=== PATIENT | female | born 1955 | race Caucasian/White ===

== ENCOUNTER → 2017-08-19 | Outpatient (CLI) | payer BC | LOC: CIMAGING 07:11 | PROVIDERS: ATTEND Family Medicine | DX: Z12.31 Encounter for screening mammogram for malignant neoplasm of breast (principal) | CPT/HCPCS: G0202 ==

== ENCOUNTER → 2018-08-25 | Outpatient (CLI) | payer BC | LOC: CIMAGING 09:25 | PROVIDERS: ATTEND Family Medicine | DX: Z12.31 Encounter for screening mammogram for malignant neoplasm of breast (principal) ==

== ENCOUNTER 2019-02-20 12:51 | Emergency (ER) | payer BC ==
--- NOTE | 2019-02-20 13:41 | EDPHY ---
H & P Stated Complaint: Foggy mind, dry mouth x 2 days Time Seen by Provider: 02/20/19 13:06 HPI/ROS: CHIEF COMPLAINT: Not feeling right History by patient HISTORY OF PRESENT ILLNESS: 63-year-old woman with history of hypertension and low thyroid presents complaining of 2-3 days of episodes where she is "feeling fuzzy in the head" along with a dry mouth and feeling like her bilateral arms are not strong like they ought to be. She denies vertigo, near-syncope or syncope. She denies chest pain or shortness of breath. She thinks this might be related to the addition of hydrochlorothiazide to her blood pressure medication regime. She began taking this 6-8 weeks ago and initially had some symptoms where she felt a little "woozy" but these resolved but then the past few days she has been having this "fuzzy head" and very dry mouth. She has been drinking lots of water to combat this. 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 She had yesterday off and was feeling slightly better yesterday but worse again today while at work. She denies taking any additional over-the- counter medications or herbal supplements other than vitamin D and vitamin C. She quit smoking many years ago. She wears contact lenses and does use wetting drops for her eyes which are sometimes dry but are not clearly worse than usual with the dry mouth. REVIEW OF SYSTEMS: As in HPI, and all other systems reviewed and are negative Source: Patient - Personal History Current Tetanus Diphtheria and Acellular Pertussis (TDAP): Yes Tetanus Vaccine Date: within 10 years - Medical/Surgical History Hx Asthma: No Hx Chronic Respiratory Disease: No Hx Diabetes: No Hx Cardiac Disease: No Hx Renal Disease: No Hx Cirrhosis: No Hx Alcoholism: No Hx HIV/AIDS: No Hx Splenectomy or Spleen Trauma: No Other PMH: HTN, hypothyroidism - Social History Smoking Status: Former smoker - Physical Exam Exam: General Appearance: Alert, comfortable, nontoxic-appearing Head: normocephalic, atraumatic Eyes: Pupils equal and round, reactive to light, no pallor or injection. Mouth: Mucous membranes moist. Oropharynx clear Neck: No bony tenderness, full range of motion Respiratory: Normal, effort, lungs are clear to auscultation. No wheezes, rales or rhonchi. Cardiovascular: Regular rate and rhythm. S1, S2, no murmurs, gallops or rubs appreciated Gastrointestinal: Abdomen is soft and nontender, no masses, bowel sounds normal. Back: No CVA tenderness, no bony tenderness Neurological: Awake, alert and oriented x 3, cranial nerves 2-12 intact, no pronator drift, normal gait, stands on heels and toes, sensation intact her Skin: Warm and dry, no rashes. Musculoskeletal: No deformities or tenderness. Extremities: full range of motion, no edema, DP2+ bilat Psychiatric: Patient has normal affect, there is no agitation. Constitutional: Initial Vital Signs Temperature (C) 36.4 C 02/20/19 13:00 Heart Rate 78 02/20/19 13:00 Respiratory Rate 16 02/20/19 13:00 Blood Pressure 150/87 H 02/20/19 13:00 O2 Sat (%) 94 02/20/19 13:00 O2 Delivery Mode Room Air Allergies/Adverse Reactions: Penicillins Allergy (Verified 02/20/19 13:02) PT unsure of reaction, reaction as child Home Medications: Medication Instructions Recorded Levothyroxine 02/20/19 Lisinopril/Hydrochlorothiazide 02/20/19 Medical Decision Making ED Course/Re-evaluation: 63-year-old woman presents with dry mouth and fuzzy head after recent change her blood pressure medications. Vital signs were stable although her blood pressure was slightly high certainly not range which I would think it would cause any symptoms. She is unremarkable exam. To make sure this was not related to change in her electrolytes related to hydrochlorothiazide or her fluid intake chemistry panel was performed. Electrolytes glucose and BUN and creatinine were all within normal limits. Patient was given reassurance. I am recommending she stop the hydrochlorothiazide temporarily to see if this resolves her symptoms. She does have lisinopril available to take alone. We discussed how this may not control her blood pressure optimally but better than nothing she can follow up with Dr. Sanchez her primary care physician to see how she is doing with her symptoms and her blood pressure next week. Patient understands and is agreeable to this plan. - Data Points Laboratory Results: 02/20/19 13:52 POC Hgb 13.9 gm/dL gm/dL (12.6-16.3) POC Hct 41 % % (38-47) POC Sodium 136 mEq/L mEq/L (135-145) POC Potassium 3.7 mEq/L mEq/L (3.3-5.0) POC Chloride 102 mEq/L mEq/L (97-110) POC Total CO2 22 mEq/L mEq/L (22-31) POC BUN 21 mg/dL mg/dL (7-23) POC Creatinine 1.1 mg/dL H mg/dL (0.6-1.0) POC Glucose 108 mg/dL H mg/dL (70-100) Point of Care Test Results: Chemistry 02/20/19 13:52 POC Sodium 136 mEq/L mEq/L (135-145) POC Potassium 3.7 mEq/L mEq/L (3.3-5.0) POC Chloride 102 mEq/L mEq/L (97-110) POC Total CO2 22 mEq/L mEq/L (22-31) POC BUN 21 mg/dL mg/dL (7-23) POC Creatinine 1.1 mg/dL H mg/dL (0.6-1.0) POC Glucose 108 mg/dL H mg/dL (70-100) ISTAT H&H 02/20/19 13:52 POC Hgb 13.9 gm/dL gm/dL (12.6-16.3) POC Hct 41 % % (38-47) Departure - Departure Disposition: Home, Routine, Self-Care Clinical Impression: Complaining of muzzy head, Dry mouth, unspecified Hypertension Qualifiers: Hypertension type: unspecified Qualified Code(s): I10 - Essential (primary) hypertension Condition: Good Instructions: Dry Mouth (ED), Hypertension (ED) Additional Instructions: You were seen by Dr. Batsheva William today. I recommend he stop the hydrochlorothiazide but continue your lisinopril. Please see if this improves her symptoms over the next several days. Please follow up with her primary care physician, Dr. Sanchez, next week to see what the next step should be for your blood pressure if your symptoms are related to hydrochlorothiazide. Return for any worsening or new concerns. Referrals: ED,PHYSICIAN ONDUTY [Primary Care Provider] - As per Instructions
[2019-02-20 14:01] VITALS: BP 121/79
== END 2019-02-20 14:10 | disposition home or self-care (01) ==
LOC: CED 12:51
DX: R41.9 Unspecified symptoms and signs involving cognitive functions and awareness (principal); R68.2 Dry mouth, unspecified; I10 Essential (primary) hypertension; E03.9 Hypothyroidism, unspecified; Z87.891 Personal history of nicotine dependence; Z88.0 Allergy status to penicillin
CPT/HCPCS: 82435-PO; 82565-PO; 82947-PO; 84132-PO; 84295-PO; 84520-PO; 85014-ER; 99282-ER